=== PATIENT | female | born 1980 | race Caucasian/White ===

== ENCOUNTER → 2024-07-30 | Outpatient (CLI) | payer OTHER ==
[~2024-07-30] MED LIST: CODACE30 PO; CRUTCH2 USE; HYDACE5 PO; IBUP800; OXYACE5T PO; PENVK500 PO; SULTRIDS PO
[2024-07-30 13:13] LABS: BASOPHILS ABSOLUTE AUTO 0.06 K/mm3 (0.00-0.23); BASOPHILS PERCENT AUTO 1 % (0-2); EOSINOPHILS ABSOLUTE AUTO 0.17 K/mm3 (0.00-0.68); EOSINOPHILS PERCENT AUTO 3 % (0-6); Hemoglobin 12.8 g/dL (11.5-16.0); IMMATURE GRAN ABSOLUTE AUTO 0.02 K/mm3 (0.00-0.10); IMMATURE GRAN PERCENT AUTO 0 % (0-1); LYMPHOCYTES ABSOLUTE AUTO 2.75 K/mm3 (0.84-5.20); LYMPHOCYTES PERCENT AUTO 41 % (21-46); MONOCYTES ABSOLUTE AUTO 0.44 K/mm3 (0.16-1.47); MONOCYTES PERCENT AUTO 7 % (4-13); Mean Corpuscular HGB 31.5 pg (26.0-34.0); Mean Corpuscular HGB Conc 33.7 g/dL (31.5-36.5); Mean Corpuscular Volume 94 fL (80-100); Mean Platelet Volume 10.6 fL (9.1-12.4); NEUTROPHILS PERCENT AUTO 49 % (41-73); Platelet Count 227 K/mm3 (150-400); RDW Coefficient Variation 12.9 % (11.7-14.2); RDW Standard Deviation 44.5 fL (35.1-46.3); Red Blood Cell Count 4.06 M/mm3 (3.80-5.20); White Blood Cell Count 6.74 K/mm3 (4.00-11.30)
[2024-07-30 13:25] LABS: Albumin, Blood 3.6 g/dL (3.4-5.0); Albumin/Globulin Ratio 0.9 (0.8-1.8); Bilirubin, Total 0.5 mg/dL (0.1-1.0); Bun/Creatinine Ratio 11.3 (12.0-20.0); Calcium, Blood 8.4 mg/dL (8.5-10.1); Creatinine, Blood 0.71 mg/dL (0.40-1.00); Globulin, Blood 3.8 g/dL (2.2-4.0); Total Protein, Blood 7.4 g/dL (6.4-8.2)
== END | disposition home or self-care (01) ==
LOC: LAB 13:09 → LAB SHORT 13:09
PROVIDERS: Emergency Medicine
DX: R10.11 Right upper quadrant pain (principal)
CPT/HCPCS: 80053; 83690; 85025

== ENCOUNTER 2025-09-05 11:46 | Day surgery (SDC) | payer OTHER ==
[~2025-09-05] VITALS: Ht 175.3 cm; Wt 81.0 kg
[~2025-09-05 11:46] MED LIST changes: +Dexamethasone Sod Phos 10 MG/ML 1ML VIAL ONE; +FentaNYL Citrate 50 MCG/ML 2 ML Injection ONE; +Ondansetron HCl 2 MG / ML 2ML Vial ONE; +Rocuronium Bromide 10 MG/ML 5ML Injection IV ONE; +Sugammadex Sodium 200 MG/2ML SDV (100 MG/ML) ONE
[2025-09-05] MEDS ORDERED: Tranexamic Acid 100 ML IV ONE (12:03)
[2025-09-05] MEDS ORDERED: LEVSOD25 (12:10)
[2025-09-05] MEDS ORDERED: AMPDEX10CR (12:11)
[2025-09-05] MEDS ORDERED: Midazolam HCl 1MG / ML 2ML Vial ONE (13:24)
[2025-09-05] MEDS ORDERED: Bupivacaine 0.5% HCl 5 MG/ML 30MLVIAL INJ ONE (13:52)
[2025-09-05] MEDS ORDERED: FentaNYL Citrate 50 MCG/ML 2 ML Injection ONE (14:14)
[2025-09-05] MEDS ORDERED: Ondansetron HCl 2 MG / ML 2ML Vial ONE (14:21)
[2025-09-05] MEDS ORDERED: Metoclopramide HCl 5MG / ML 2ML Vial ONE (15:08)
[2025-09-05 15:20] VITALS: BP 144/72
--- NOTE | 2025-09-05 15:34 | NUR ---
09/05/25 1534 Kali Condon PT'S HEART RATE NOTED TO BE IRREGULAR FOR APPROXAMATELY FIVE MINUTES IN SDU. PT DENIED SOB, NAUSEA, CP, AND OTHER SYMPTOMS AT THAT TIME. DR. CAN WAS CONSULTED AND APPROVED D/C. PT WAS GIVEN A COPY OF RHYTHM STRIP PER DR. CAN ORDERS AND INSTRUCTED TO CONSULT WITH PCP ON HER NEXT VISIT.
== END 2025-09-05 15:40 | disposition home or self-care (01) ==
LOC: ORSCSDS 11:46
PROVIDERS: Otolaryngology
PROC: 0CBPXZZ Excision of Tonsils, External Approach (ICD-10-PCS; principal; 2025-09-05 13:30)
DX: J35.01 Chronic tonsillitis (principal); J35.9 Chronic disease of tonsils and adenoids, unspecified; J35.8 Other chronic diseases of tonsils and adenoids; J45.909 Unspecified asthma, uncomplicated; E07.9 Disorder of thyroid, unspecified; Z79.899 Other long term (current) drug therapy; Z87.891 Personal history of nicotine dependence
CPT/HCPCS: 88304; J1100; J2250; J2405; J2704; J2765; J3010; J7120